=== PATIENT | male | born 1935 | race Caucasian/White ===

== ENCOUNTER → 2021-01-10 22:46 | Outpatient (CLI) | payer SELFPAY ==
[2021-01-10 23:26] LABS: HEMATOCRIT 30.7 % (42.0-54.0); HEMOGLOBIN 9.3 g/dL (13.5-17.5); LYMPHOCYTES 18.8 % (15-50); MCHC 30.3 g/dL (31.0-37.0); MCV 102.3 fL (80.0-100.0); MEAN PLATELET VOLUME 8.6 fL (7.4-10.4); PLATELET COUNT 505 10x3/uL (130-400); WBC 6.7 10x3/uL (4.8-10.8)
[2021-01-10 23:37] LABS: ALBUMIN 2.6 g/dL (3.4-5.0); ANION GAP 10.9 mmol/L (8-16); BILIRUBIN - TOTAL 0.24 mg/dL (0.2-1.3); CREATININE - SERUM 1.4 mg/dL (0.6-1.3); POTASSIUM - SERUM 3.9 mmol/L (3.5-5.1)
== END | disposition home or self-care (01) ==
LOC: D.LABREF 22:46
PROVIDERS: ATTEND Family Medicine
DX: I48.91 Unspecified atrial fibrillation (principal)